=== PATIENT | female | born 1950 | race Caucasian/White ===

== ENCOUNTER 2018-04-26 00:42 | Outpatient (CLI) | payer MEDICARE, BC, SELFPAY ==
--- NOTE | 2018-04-26 10:50 | DI.MAMMO_ITS ---
SYMPTOM/DIAGNOSIS: SCREENING, [facility] Z00.00 MAMMOGRAMS: Mammograms were interpreted according to the usual protocol including computer analysis with CAD system, tomosynthesis and C view imaging. Comparison with prior examinations. Breast density B. No masses or microcalcifications are seen. There is nothing to suggest malignancy. IMPRESSION: Negative mammogram. Routine screening is recommended. Category 1 , B. MQSA ASSESSMENT OF FINDINGS: Negative. Category 1. Patient will receive a letter notifying them of these results. BI-RADS category B. There are scattered areas of fibroglandular density.
== END 2018-04-26 01:02 ==
PROVIDERS: PCP Family Medicine; Visit Provider Family Medicine
DX: Z12.31 Encounter for screening mammogram for malignant neoplasm of breast (principal)
CPT/HCPCS: 77063; 77067

== ENCOUNTER 2018-04-29 12:18 | Outpatient (REF) | payer MEDICARE, BC, SELFPAY ==
[2018-04-29 13:36] LABS: ALT 60 U/L (12-78); AST 28 U/L (15-37); Albumin 4.1 g/dL (3.4-5.0); Alkaline Phosphatase 96 U/L (46-116); BUN 20 mg/dL (7-18); Bilirubin, Total 0.7 mg/dL (0.2-1.0); CREATININE 0.86 mg/dL (0.55-1.02); Calcium 8.8 mg/dL (8.5-10.1); Chloride 103 mmol/L (98-107); Cholesterol 199 mg/dL (50-200); Glucose 117 mg/dL (70-100); HDL Cholesterol 36 mg/dL (40-60); LDL CHOLESTEROL 137 mg/dL (<100); Sodium 139 mmol/L (136-145); Total Protein 7.7 g/dL (6.4-8.2); Triglyceride 196 mg/dL (30-150)
== END 2018-04-29 12:38 ==
LOC: NCHCN 12:18
PROVIDERS: PCP Family Medicine; Visit Provider Family Medicine
DX: I10 Essential (primary) hypertension (principal); E07.89 Other specified disorders of thyroid
CPT/HCPCS: 80053; 80061; 83721

== ENCOUNTER 2019-05-19 08:21 | Outpatient (REF) | payer MEDICARE, BC, SELFPAY ==
[2019-05-19 14:56] LABS: HCT 41.1 % (36.0-46.0); HGB 13.6 g/dL (12.0-15.5); Mean Corp. HGB Concentration 33.1 g/dL (32.0-36.0); Mean Corpuscular Hemoglobin 30.7 pg (27.0-33.0); Mean Corpuscular Volume 92.8 fL (80-95); Mean Platelet Volume 12.1 fL (8.0-11.0); Platelet Count 193 x1000/uL (130-400); RBC 4.43 m/cumm (4.00-5.20); RBC Distribution Width 14.4 % (11.7-14.6)
[2019-05-19 15:39] LABS: ALT 52 U/L (14-59); AST 25 U/L (15-37); Alkaline Phosphatase 91 U/L (46-116); Anion Gap 9.6 mmol/L (3-11); BUN 16 mg/dL (7-18); Bilirubin, Total 0.8 mg/dL (0.2-1.0); CO2 28.4 mmol/L (21.0-32.0); CREATININE 0.96 mg/dL (0.55-1.02); Calcium 8.9 mg/dL (8.5-10.1); Calculated LDL 154 mg/dL; Chloride 101 mmol/L (98-107); Cholesterol 220 mg/dL (50-200); Glucose 122 mg/dL (70-100); HDL Cholesterol 38 mg/dL (40-60); Hemoglobin A1C 5.4 % (4.5-6.2); Potassium 3.6 mmol/L (3.5-5.1); Sodium 139 mmol/L (136-145); Total Protein 7.8 g/dL (6.4-8.2); Triglyceride 141 mg/dL (30-150)
== END 2019-05-19 08:41 ==
LOC: NCHCN 08:21
PROVIDERS: PCP Family Medicine; Visit Provider Family Medicine
DX: I10 Essential (primary) hypertension (principal); R73.09 Other abnormal glucose; E66.3 Overweight
CPT/HCPCS: 80053; 80061; 85027; 83036

== ENCOUNTER 2019-07-17 01:03 | Outpatient (CLI) | payer MEDICARE, BC, SELFPAY ==
--- NOTE | 2019-07-17 08:22 | DI.MAMMO_ITS ---
EXAM: MG MAMMO SCREENING CLINICAL HISTORY: SCREENING, Z12.39. TECHNIQUE: Full field digital CC and MLO mammographic images were obtained with 3D tomosynthesis and utilizing computer aided detection (CAD). COMPARISON: [id number]. FINDINGS: Breast density: B Masses/Architectural Distortion: None seen. Microcalcifications: No suspicious pleomorphic-type calcifications are seen. Skin Thickening/Nipple Retraction: None. Axilla: Unremarkable. IMPRESSION: 1. BI-RADS category 1, negative. No significant interval change with no specific features of maligna ncy noted. 2. Unless there is more urgent need, screening mammography is recommended, as per [employer] [employer] guidelines. BI-RADS Cat 1 - Negative Breast Density - Category B - Scattered areas of fibroglandular density A negative radiographic report should not delay biopsy if a dominant or clinically suspicious mass is present. Up to ten percent of cancers are not identified on mammography. A negative report may reinforce clinical impression. Adenosis and dense breasts may obscure an underlying neoplasm. False positive reports average 6 to 10%. Patient will receive a letter notifying them of these results.
--- NOTE | 2019-07-17 08:40 | DI.DEXA_ITS ---
EXAM: XR DEXA BONE DENSITY W/WO JAILENE INDICATION: MENOPAUSE, Z78.0. COMPARISON: 2007. TECHNIQUE: Lateral JAILENE image of the spine and bone mineral density measurements of the lumbar spine and left hip were performed. The wrist bone density could not be performed due to bilateral wrist fractures. FINDINGS: The JAILENE image shows no evidence of compression fractures. The bone mineral density measurements of the lumbar spine correspond to a total T-score of -2.5, in the osteoporotic range. This is not signi ficantly changed from 2008. The bone mineral density measurements of the left hip correspond to a total T-score of -1.3 and a fem oral neck T-score of -2.1, in the osteopenic range. This corresponds to a decrease in bone density o f 5.9 percent when compared with 2008. IMPRESSION: Osteopenia of the left hip. Osteoporosis of the lumbar spine.
== END 2019-07-17 01:23 ==
PROVIDERS: PCP Family Medicine; Visit Provider Family Medicine
DX: M81.0 Age-related osteoporosis without current pathological fracture (principal); M85.88 Other specified disorders of bone density and structure, other site; Z78.0 Asymptomatic menopausal state; Z87.81 Personal history of (healed) traumatic fracture; Z12.31 Encounter for screening mammogram for malignant neoplasm of breast
CPT/HCPCS: 77063; 77067; 77080

== ENCOUNTER 2020-05-14 08:36 | Outpatient (REF) | payer MEDICARE, BC, SELFPAY ==
[2020-05-14 21:17] LABS: HCT 40.3 % (36.0-46.0); HGB 12.7 g/dL (11.2-15.7); MCH 29.8 pg (27.0-33.0); MCHC 31.5 % (32.0-36.0); MCV 94.6 fL (80-95); MPV 12.2 fL (8.0-11.0); Platelet Count 179 10^3/uL (130-400); RBC 4.26 10^6/uL (3.93-5.22); RDW 14.3 % (11.7-14.6); RDW-SD 49.7 fL; WBC 4.55 10^3/uL (4.4-10.8)
[2020-05-14 22:37] LABS: ALT 29 U/L (14-59); AST 16 U/L (15-37); Albumin 3.8 g/dL (3.4-5.0); Alkaline Phosphatase 82 U/L (46-116); Anion Gap 7.9 mmol/L (3-11); BUN 20 mg/dL (7-18); Bilirubin, Total 0.6 mg/dL (0.2-1.0); CO2 30.1 mmol/L (21.0-32.0); CREATININE 0.74 mg/dL (0.55-1.02); Calcium 8.8 mg/dL (8.5-10.1); Calculated LDL 128 mg/dL (<100); Chloride 101 mmol/L (98-107); Cholesterol 192 mg/dL (<200); Glucose 115 mg/dL (74-106); HDL Cholesterol 40 mg/dL (40-60); Potassium 3.9 mmol/L (3.5-5.1); Sodium 139 mmol/L (136-145); TSH (W/Ref FT4) 1.05 uIU/mL (0.36-3.74); Total Protein 7.3 g/dL (6.4-8.2); Triglyceride 124 mg/dL (<150)
[2020-05-16 04:25] LABS: Vitamin D 25 Total 81.6 ng/ml (30-100)
== END 2020-05-14 08:56 ==
LOC: NCHCN 08:36
PROVIDERS: PCP Family Medicine; Visit Provider Family Medicine
DX: I10 Essential (primary) hypertension (principal); E55.9 Vitamin D deficiency, unspecified; E66.3 Overweight
CPT/HCPCS: 80053; 80061; 82306; 85027; 84443

== ENCOUNTER 2021-01-24 00:49 | Outpatient (CLI) | payer MEDICARE, BC, SELFPAY ==
--- NOTE | 2021-01-24 11:00 | NS.NUTBLAN_ITS ---
Rebeca was referred for Medical Nutrition Therapy for weight management. 5'3 172 lbs BMI: 30. Rebeca reports walking 3-4 miles daily and tracking her food intake on lorna on phone. She reports following a 1500 kcal meal plan with 150- 200 g CHO, 50-60 g protein, 40-50 g fat. She has been doing this for the last 3 years without any significant weight loss. Has a hx of thyroid nodules, no treatment needed. PMH: HTN. Family of DM2. Rebeca's meal plan indicates high intakes of simple carbohydrates and no meal at dinner. Suspect lack of weight loss due in part to excessive carb intake and insulin resistance. Would also recommend checking thyroid function and eating 3 meals and 2 snacks daily with emphasis on complex carbs, lean protein and healhty fats. . Provided instruction on how to follow 0258-3837 kcal meal plan with 80-100g carbohydrate, 60-70 g protein and 40-55 g fat. Encouraged continued walking of 1 hour daily. Goal wt: 150-160 lbs, with 1 lbs weight loss per week. Follow up appt. scheduled for 02/27/21 at 11 am.
== END 2021-01-24 00:50 | disposition home or self-care (01) ==
LOC: DS 00:49
PROVIDERS: PCP Family Medicine; Visit Provider Dietitian, Registered
DX: R63.5 Abnormal weight gain (principal); E66.3 Overweight; Z68.30 Body mass index [BMI] 30.0-30.9, adult; Z71.3 Dietary counseling and surveillance
CPT/HCPCS: 97802

== ENCOUNTER 2021-03-21 01:19 | Outpatient (CLI) | payer MEDICARE, BC, SELFPAY ==
--- NOTE | 2021-03-21 11:00 | NS.NUTBLAN_ITS ---
Rebeca returns for Medical Nutrition Therapy for weight management. 5'3 168 lbs, down 4 lbs in last 8 weeks, BMI 29.8. Rebeca reports reducing her carbohydrate intake as recommended and has been following a 3218-3774 calorie meal plan with 80-100g carbohydrate, 60-70 g protein, 45-55 g fat. She continues to log her meals on phone lorna. Session today focused on meal variety and how to stay on track with logging and exercising. Rebeca is very pleased with how she feels on this meal plan and reports feeling full and satisfied. Reviewed and adjusted dinner meal to consist of more protein (goal 25 g protein at dinner) to help with satiety in evening. Goal weight: 150-155 lbs. Follow up scheduled for 05/29/21 at 11 am.
== END 2021-03-21 01:20 | disposition home or self-care (01) ==
LOC: DS 01:19
PROVIDERS: PCP Family Medicine; Visit Provider Dietitian, Registered
DX: E66.3 Overweight (principal); Z68.29 Body mass index [BMI] 29.0-29.9, adult; Z71.3 Dietary counseling and surveillance
CPT/HCPCS: 97803

== ENCOUNTER 2021-05-14 09:20 | Outpatient (REF) | payer MEDICARE, BC, SELFPAY ==
[2021-05-14 14:18] LABS: HCT 38.2 % (36.0-46.0); HGB 12.5 g/dL (11.2-15.7); MCH 30.5 pg (27.0-33.0); MCHC 32.7 % (32.0-36.0); MCV 93.2 fL (80-95); MPV 12.3 fL (8.0-11.0); Platelet Count 143 10^3/uL (130-400); RDW 13.5 % (11.7-14.6); RDW-SD 46.1 fL
[2021-05-14 14:29] LABS: ALT 30 U/L (14-59); AST 16 U/L (15-37); Albumin 3.9 g/dL (3.4-5.0); Alkaline Phosphatase 109 U/L (46-116); Anion Gap 9.1 mmol/L (3-11); BUN 20 mg/dL (7-18); Bilirubin, Total 0.8 mg/dL (0.2-1.0); CO2 28.9 mmol/L (21.0-32.0); CREATININE 0.8 mg/dL (0.55-1.02); Calcium 9.1 mg/dL (8.5-10.1); Calculated LDL 122 mg/dL (<100); Chloride 104 mmol/L (98-107); Cholesterol 184 mg/dL (<200); Glucose 98 mg/dL (74-106); HDL Cholesterol 45 mg/dL (40-60); Sodium 142 mmol/L (136-145); TSH (W/Ref FT4) 1.06 uIU/mL (0.36-3.74); Total Protein 7.4 g/dL (6.4-8.2); Triglyceride 85 mg/dL (<150)
[2021-05-15 04:56] LABS: Vitamin D 25 Total 91.1 ng/mL (30-100)
== END 2021-05-14 09:21 | disposition home or self-care (01) ==
LOC: NCHCN 09:20
PROVIDERS: PCP Family Medicine; Visit Provider Family Medicine
DX: E66.3 Overweight (principal); E04.1 Nontoxic single thyroid nodule; E55.9 Vitamin D deficiency, unspecified; I10 Essential (primary) hypertension
CPT/HCPCS: 80053; 80061; 82306; 85027; 84443

== ENCOUNTER 2021-07-01 00:41 | Outpatient (CLI) | payer MEDICARE, BC, SELFPAY ==
--- NOTE | 2021-07-01 | DI.MAMMO_ITS ---
Exam(s) MAMMO SCREENING EXAM: MAMMO SCREENING CLINICAL HISTORY: SCREENING, PREVENTIVE [facility]ALTH, Z00.00 TECHNIQUE: Bilateral full field digital CC and MLO mammographic images were obtained with 3D tomosyn thesis and utilizing computer aided detection (CAD). COMPARISON: Available for comparison. FINDINGS: Masses/Architectural Distortion: None seen. Stable nodules in the left breast may reflect intraparenc hymal lymph nodes. Microcalcifications: No suspicious pleomorphic-type are seen. Skin Thickening/Nipple Retraction: None. IMPRESSION: 1. No significant interval change with no specific features of malignancy noted. 2. Unless there is more urgent need, screening mammography is recommended, as per [employer] guidelines. BI-RADS Category 1 - Negative Breast Density - Category B - Scattered areas of fibroglandular density Breast density category C or D implies that the patient has dense breast tissue. Dense breast tissue is very common and is not abnormal but dense breast tissue can make it harder to find cancer on a ma mmogram. Also, dense breast tissue may increase their breast cancer risk. This information about the result of the mammogram report was provided to the patient to raise their awareness. Use this report when you speak with the patient about their risks for breast cancer, which includes their family hist ory. At that time, you may recommend for more screening tests (Ultrasound or MRI) as they might be us eful based on their risk. A negative radiographic report should not delay biopsy if a dominant or clinically suspicious mass is present. Up to ten percent of cancers are not identified on mammography. A negative report may reinforce clinical impression. Adenosis and dense breasts may obscure an underlying neoplasm. False positive reports average 6 to 10%. Patient will receive a letter notifying them of these results.
--- OUTSIDE RECORDS SUMMARY | 2021-07-01 00:43 | XMS_ITS ---
:1950 Author Care Team Providers Name Role Phone DR. JANIE CHRISTINA Primary Care Provider [phone] [facility] Primary Care Provider [phone] [facility] Primary Care Provider [phone] Allergies Code Code System Name Reaction Severity Status Onset NKDA ? Medications Name Status Start Date Stop Date ? ? Calcium 500 Completed ? 01/24/2019 1 tab BID doxepin 10 mg capsule Completed 08/05/2017 08/05/2017 1 (one) Capsule: at bedtime, as needed Fish Oil Completed ? 01/24/2019 1000mg cap daily fosinopril 20 mg tablet Active ? Not avai lable Take 1 tablet every day by oral route. hydrochlorothiazide 25 mg tablet Active ? Not available Take 1 tablet every day by oral route. multivitamin Active ? Not available 1 tab daily Silenor 6 mg tablet Completed ? 01/24/2019 Take 1 tablet every day by oral route at bedtime. Vitamin D3 25 mcg (1,000 unit) capsule Completed ? 01/24/2019 Take 1 capsule every day by oral route. Problems Name Status Onset Date Source ? Thyroid Nodule Active 01/19/2019 ? Osteopenia Active 01/19/2019 ? Snoring Active 01/19/2019 ? Overweight Active ? History Insomnia Active ? History Hypersomnia Active ? History Obstructive Sleep Apnea Syndrome Active ? History Hypertensive Disorder Active ? History Irregular Sleep-wake Pattern Active ? His tory Procedures None recorded. Results Lab Results None recorded. Past Encounters 04/17/2020 Obstructive Sleep Apnea Syndrome Chaya Jones [employer]: [address] [place] [id number], Ph. Social History Tobacco Smoking Status Never Smoker Vaccine List None recorded. Plan of Care Reminders Provider Appointments None ? ? recorded. Lab None ? ? recorded. Referral None ? ? recorded. Procedures None ? ? recorded. Surgeries None ? ? recorded. Imaging None ? ? recorded. Vitals 04/17/2020 10:00AM Office 30 Height Weight BMI Blood Pressure 160.02 cm 75.48 kg 29.5 kg/m2 140/62 mm[Hg] 01/24/2019 08:45AM Office 30 Height Weight BMI Blood Pressure 160.02 cm 80.06 kg 31.3 kg/m2 120/70 mm[Hg] 08/05/2017 Height Weight Blood Pressure 160.02 cm 80.4 kg 126/76 mm[Hg] 05/25/2017 Weight Blood Pressure 77.56 kg 140/80 mm[Hg] 07/07/2016 Height Weight Blood Pressure 160.02 cm 77.74 kg 126/82 mm[Hg] 07/10/2013 Height Weight Blood Pressure 160.02 cm 73.03 kg 130/82 mm[Hg] 03/22/2013 Height Weight Blood Pressure 160.02 cm 73.03 kg 118/76 mm[Hg] 11/09/2012 Height Weight Blood Pressure 160.02 cm 70.87 kg 122/74 mm[Hg] 08/29/2012 Height Weight Blood Pressure 160.02 cm 73.94 kg 148/82 mm[Hg]
== END 2021-07-01 01:01 ==
PROVIDERS: PCP Family Medicine; Visit Provider Family Medicine
DX: Z12.31 Encounter for screening mammogram for malignant neoplasm of breast (principal)
CPT/HCPCS: 77063; 77067

== ENCOUNTER 2022-06-02 10:03 | Outpatient (REF) | payer MEDICARE, SELFPAY ==
[2022-06-02 15:57] LABS: HCT 40.1 % (36.0-46.0); HGB 13.1 g/dL (11.2-15.7); MCH 30.4 pg (27.0-33.0); MCHC 32.7 % (32.0-36.0); MCV 93 fL (80-95); Platelet Count 145 10^3/uL (130-400); RBC 4.31 10^6/uL (3.93-5.22); RDW 13.2 % (11.7-14.6); RDW-SD 45.1 fL; WBC 4.35 10^3/uL (4.4-10.8)
[2022-06-02 16:16] LABS: ALT 28 U/L (14-59); AST 20 U/L (15-37); Albumin 4.1 g/dL (3.4-5.0); Alkaline Phosphatase 96 U/L (46-116); Anion Gap 6.3 mmol/L (3-11); BUN 21 mg/dL (7-18); Bilirubin, Total 0.6 mg/dL (0.2-1.0); CO2 28.7 mmol/L (21.0-32.0); CREATININE 0.8 mg/dL (0.55-1.02); Calcium 9.2 mg/dL (8.5-10.1); Chloride 106 mmol/L (98-107); Estimated GFR 78.72 (mL/min/1.73m2); Glucose 107 mg/dL (74-106); Potassium 4.2 mmol/L (3.5-5.1); Sodium 141 mmol/L (136-145); Total Protein 7.6 g/dL (6.4-8.2)
[2022-06-02 16:33] LABS: Calculated LDL 135 mg/dL (<100); Cholesterol 202 mg/dL (<200); HDL Cholesterol 48 mg/dL (40-60); Triglyceride 97 mg/dL (<150)
[2022-06-02 17:18] LABS: Hemoglobin A1C 5.1 % (<5.7)
== END 2022-06-02 10:04 | disposition home or self-care (01) ==
LOC: NCHCN 10:03
PROVIDERS: PCP Family Medicine; Visit Provider Family Medicine
DX: E66.3 Overweight (principal); R73.9 Hyperglycemia, unspecified; E55.9 Vitamin D deficiency, unspecified; I10 Essential (primary) hypertension; E04.1 Nontoxic single thyroid nodule
CPT/HCPCS: 80053; 80061; 85027; 83036

== ENCOUNTER → 2022-06-16 11:30 | Outpatient (BNVA) | payer MEDICARE, SELFPAY | PROVIDERS: PCP Family Medicine; Referring Provider Family Medicine; Visit Provider Surgery | DX: Z12.11 Encounter for screening for malignant neoplasm of colon (principal); Z86.010 Personal history of colon polyps ==

== ENCOUNTER 2022-06-29 09:28 | Day surgery (SDC) | payer MEDICARE, SELFPAY ==
--- NOTE | 2022-06-29 06:38 | COLE_ITS ---
Date of service: 06/29/22 Time of Service: : Colonoscopy Report Date of procedure: 06/29/22 Pre-op diagnosis general: Colon cancer Screening Post-op diagnosis procedure note: same Procedure: Colonoscopy Surgeon: Latricia Pyle Anesthesia Type: General:No Airway Estimated blood loss (mL): 0 Pathology: none sent Complications: None Disposition: same day Indications: The patient? is a pleasant ? 71-year-old female who is here to discuss another screening colonoscopy. ? Her last colonoscopy was in 2010 and she was noted to have 2 hyperplastic polyps.? She denies any changes in bowel habits, melena, hematochezia, unintentional weight loss or family history of colon cancer.? The procedure and risks were discussed.? The prep was reviewed in detail.? Risks, benefits and complications have been reviewed. Complications include but are not limited to bleeding, pain, perforation, missed small lesion/polyp, sore throat, aspiration and adverse reaction to the medications. Questions were entertained and answered to their satisfaction and they wished to proceed. No guarantees were given or implied. Prep: Miralax/Dulcolax Procedure Start Time: Procedure End Time: Retraction Time: 8 minutes Findings: Normal Procedure Description: After informed consent was obtained the patient was taken to the procedure room and placed in a left decubitous position. Monitors were applied and a time out was done. The patients name, date of , procedure, allergies to medications and metal in their body was reviewed. The patient was then sedated. Once sedated and comfortable a rectal exam was done. External exam was normal. Internal exam revealed a normal sphincter tone and no palpable masses. The scope was then introduced and retro-flexed. No internal hemorrhoids, polyps or masses were identified on retro-flexion. The scope was then advanced to the cecum without difficulty. The ileocecal vlave and appendiceal orifice were identified. The prep was good. The scope was then slowly retracted over 8 james rohit back into the rectum. There were no polyps. There was no diverticulosis noted. The scope was removed and the patient was woken up and taken back to Same day surgery in stable condition. The patient tolerated the procedure well and there were no immediate complications.
--- NOTE | 2022-06-29 06:39 | W.PM.DSUDISC ---
Date of service: 06/29/22 Time of Service: 11:19 Discharge Plan Disposition Patient Disposition: HOME Condition: Good Discharge Details Reason For Visit: Colon cancer Screening Attending Provider: Latricia Pyle Primary Care Provider: Jaki Vidal Home Meds and New Rx's Prescriptions: Continued fosinopril 10 mg tablet 10 mg PO DAILY Discontinued bisacodyl [Dulcolax (bisacodyl)] 5 mg tablet,delayed release (DR/EC) 5 mg PO ONCE Qty: 4 0RF Rx Instructions: Take according to provider's instructions for colonoscopy prep. polyethylene glycol 3350 17 gram/dose powder 17 g PO ONCE Qty: 238 0RF Rx Instructions: To be taken as directed by prescriber's office for colonoscopy prep. Discharge Instructions Additional Instructions: Findings: Normal colonoscopy Follow up: 10 years (depending on your health) Please call if you develop: fevers >101.5 Nausea or Vomiting Abdominal pain that is not transient Rectal bleeding that is more then a tbsp A hard abdomen and inability to pass gas DAY SURGERY UNIT POST ENDOSCOPY INSTRUCTIONS Instructions for everyone who is given Anesthesia: For your safety, please do the following for the next 24 Hours: a. Do not drive or operate dangerous equipment b. Do not drink alcohol beverages or use any recreational drugs for the first 24 hours or while taking pain medications. The medications in your body may have a reaction that can be dangerous. c. Do not make any important decisions or sign any important papers 1. Generally there are no restrictions on your activity after a day or so has gone by, but you may feel a bit fatigued for a few days. 2. After you arrive home you may have a light meal and return to a normal diet as you can tolerate it without feeling sick to your stomach. 3. After surgery, you may feel pain or discomfort. This should be only transient, but if it persists please contact your doctor. 4. If there are any questions regarding the findings of your procedure, please feel free to contact your doctor. 6. If you are unable to contact your doctor with a problem, contact the hospital at [phone]. 7. Continue all your regular medications unless directed otherwise. I understand the above instructions and have no questions. Signature of Patient or Responsible Adult Escort Date/Time Name of Responsible Adult Escort Signature of Nurse Date/Time Activity:: Activity as Tolerated Equipment/Supplies:: No Equipment Needed Diet:: As Tolerated
[2022-06-29 10:26] VITALS: BP 177/83; PULSE 71; RESP 16; TEMP 36.3; O2SAT 100
[2022-06-29] MEDS: Lactated Ringers 1,000 ML 80 ML IV (10:42)
--- NOTE | 2022-06-29 11:06 | ANES.PREOP_ITS ---
General Info Date of Service Date Performed: 06/29/22 Height: 5 ft 4 in Weight: 77.4 kg Body Mass Index (BMI): 29.2 Surgical Procedure: Operation Date: 06/29/22 11:20 Proposed Procedure Side Surgeon p Colonoscopy Latricia Pyle MD Meds Allergies and Home Medications Allergies Allergy/AdvReac Type Severity Reaction Status Date / Time No Known Allergies Allergy Verified 06/29/22 10:24 Home Medication Medication Instructions Recorded fosinopril 10 mg tablet 10 mg PO DAILY 09/19/21 bisacodyl 5 mg tablet,delayed 5 mg PO ONCE #4 tabs 06/16/22 release (Dulcolax (bisacodyl)) polyethylene glycol 3350 17 17 g PO ONCE #238 grams 06/16/22 gram/dose oral powder Current Visit Medications: Current Medications Generic Name Dose Route Start Last Admin Trade Name Freq PRN Reason Stop Dose Admin Hyoscyamine Sulfate 0.125 mg 06/29/22 06:40 Hyoscyamine 0.125 Mg Sl/Oral/Chew SL DIRECTED PRN Ringer's Solution 1,000 mls @ 80 mls/hr 06/29/22 06:00 06/29/22 10:42 IV 07/26/22 23:59 80 mls/hr INFUSION RAMON Administration IV Miscellaneous Supplies 1 each 06/29/22 06:00 Iv Access IV 07/26/22 23:59 DIRECTED RAMON Ondansetron HCl 4 mg 06/29/22 06:40 Ondansetron 4 Mg/2 Ml Vial IVP Q4H PRN PRN Nausea / Vomiting Sodium Chloride 0 ml 06/29/22 06:00 Normal Saline Flush 10 Ml Syr IV 07/26/22 23:59 PRN PRN Sodium Chloride 0 ml 06/29/22 06:00 Normal Saline 10 Ml Vial IJ 07/26/22 23:59 DIRECTED PRN Sterile Water 0 ml 06/29/22 06:00 Water,Injection,Sterile 10 Ml Vial IJ 07/26/22 23:59 DIRECTED PRN PFSH Active Problems Active Problems: Problem Status Onset Code Screening for colon cancer Z12.11 DINO (obstructive sleep apnea) G47.33 Medical History Medical History Hyperplastic colon polyp Hypertension Osteoporosis Prediabetes Skin lesion Thyroid nodule Varicose veins of right lower extremity Vitamin D deficiency Surgical History Surgical History History of colonoscopy (~05/2011) Hx of section Tobacco Smoking/Tobacco Use Status: Never Alcohol Alcohol Intake: current Alcohol intake frequency: holidays/special occasions only Alcohol type: wine Substance Use Substance use: Never Substance use type: does not use Vital Signs and Lab Results Vital Signs Most Recent Vital Signs in EMR: Most Recent Vital Signs Temp Pulse Resp BP Pulse Ox 36.3 C L 71 16 177/83 H 100 06/29/22 10:26 06/29/22 10:26 06/29/22 10:26 06/29/22 10:26 06/29/22 10:26 Lab Results Blood Type / Crossmatch: No Data to Display Complete Blood Count: White Blood Count 4.35 10^3/uL (4.4-10.8) L 06/02/22 08:00 Red Blood Count 4.31 10^6/uL (3.93-5.22) 06/02/22 08:00 Hemoglobin 13.1 g/dL (11.2-15.7) 06/02/22 08:00 Hematocrit 40.1 % (36.0-46.0) 06/02/22 08:00 Platelet Count 145 10^3/uL (130-400) 06/02/22 08:00 Complete Metabolic Panel: Sodium 141 mmol/L (136-145) 06/02/22 08:00 Potassium 4.2 mmol/L (3.5-5.1) 06/02/22 08:00 Chloride 106 mmol/L (98-107) 06/02/22 08:00 Carbon Dioxide 28.7 mmol/L (21.0-32.0) 06/02/22 08:00 BUN 21 mg/dL (7-18) H 06/02/22 08:00 Creatinine 0.8 mg/dL (0.55-1.02) 06/02/22 08:00 Est GFR (CKD-EPI 2020) 78.72 (mL/min/1.73m2) 06/02/22 08:00 Calcium 9.2 mg/dL (8.5-10.1) 06/02/22 08:00 Albumin 4.1 g/dL (3.4-5.0) 06/02/22 08:00 Glucose 107 mg/dL (74-106) H 06/02/22 08:00 Hemoglobin A1c 5.1 % (<5.7) 06/02/22 08:00 Liver Function Panel: Alanine Aminotransferase (ALT/SGPT) 28 U/L (14-59) 06/02/22 08: 00 Aspartate Amino Transf (AST/SGOT) 20 U/L (15-37) 06/02/22 08:00 Coagulation Panel: No Data to Display Cardiac Panel: No Data to Display Arterial Blood Gas: No Data to Display Venous Blood Gas: No Data to Display Pancreas Panel: No Data to Display Thyroid Panel: No Data to Display Infectious Disease: No Data to Display Blood Cultures: No Data to Display Toxicology Panel: No Data to Display Anesthesia Assessment and Plan Anesthesia History Personal History: No History of Anesthesia Complications Family History: No Family History of Anesthesia Complications Exercise Tolerance Exercise Tolerance: Metabolic Equivalents>4 Pertinent Negatives Pertinent Negatives: No Symptoms of GERD, No Major Cardiovascular Symptoms or Complaints, No Major Pulmonary Symptoms or Complaints (DINO uses CPAP every night ) and No History of CVA/TIA Cardiac & Pulmonary Exam Cardiac Exam: Normal S1/S2 Heart Sounds Pulmonary Exam: Clear Bilateral Breath Sounds Implantable Cardiac Device Does patient have a Pacemaker or an ICD?: No Airway Exam Known Difficult Airway: No Mallampati Class: 3 Mouth Opening: Normal (> 3cm) Thyromental Distance: Greater than 3 cm Neck Range of Motion: Full ROM Neck Circumference: Normal Teeth Condition: Removable Dentures/Plates Upper (Partial ) ASA Classification ASA Score: ASA 2 Emergency Case?: No NPO Status NPO Status: NPO Clears >2 hours, Solids >8 hours Anesthesia Plan Resuscitation Status: Full Code Anesthesia Technique: General Anesthesia Airway Planned: Natural Airway Monitors Used: Standard Monitors
[2022-06-29 11:09] VITALS: BMI 29.2
[2022-06-29 11:45] VITALS: BP 136/73; PULSE 64; RESP 16; TEMP 36.2; O2SAT 97
--- NOTE | 2022-06-29 11:47 | W.ANESPOSTOP ---
Postoperative Evaluation Date, Time and Location Date Performed: 06/29/22 Time Performed: 11:46 Patient Location: Day Surgery Unit Vital Signs Most Recent Imported Vital Signs: Most Recent Vital Signs Temp Pulse Resp BP Pulse Ox 36.3 C L 71 16 177/83 H 100 06/29/22 10:26 06/29/22 10:26 06/29/22 10:26 06/29/22 10:26 06/29/22 10:26 Pain Score Most Recent Pain Score: Most Recent Pain Score Pain Level 0 06/29/22 10:26 Assessment Mental Status: Awake (Alert & Oriented to Patient Baseline) Airway and Respiratory Function: Patent airway with normal (patient baseline) respiratory exam Cardiovascular Function: Hemodynamically Stable Hydration Status: Adequately Hydrated Nausea & Vomiting: No Nausea or Vomiting Pain: Pt. Denies Any Pain Peripheral Nerve Block: Patient did not receive a nerve block
[2022-06-29 12:18] VITALS: BP 167/94; PULSE 69; RESP 16; TEMP 36.3; O2SAT 98
== END 2022-06-29 12:30 | disposition home or self-care (01) ==
PROVIDERS: PCP Family Medicine; Visit Provider Surgery
PROC: 0DJD8ZZ Inspection of Lower Intestinal Tract, Via Natural or Artificial Opening Endoscopic (ICD-10-PCS; CPT 45378; principal; 2022-06-29 11:15)
DX: Z12.11 Encounter for screening for malignant neoplasm of colon (principal); R73.03 Prediabetes; G47.33 Obstructive sleep apnea (adult) (pediatric)
CPT/HCPCS: G0121

== ENCOUNTER 2023-06-08 11:09 | Outpatient (REF) | payer MEDICARE, SELFPAY ==
[2023-06-08 14:47] LABS: HCT 36.9 % (36.0-46.0); HGB 12.3 g/dL (11.2-15.7); MCH 30.8 pg (27.0-33.0); MCHC 33.3 % (32.0-36.0); MCV 92 fL (80-95); MPV 11.6 fL (8.0-11.0); Platelet Count 203 10^3/uL (130-400); RDW 14.3 % (11.7-14.6); RDW-SD 48.3 fL
[2023-06-08 15:25] LABS: ALT 31 U/L (14-59); AST 20 U/L (15-37); Alkaline Phosphatase 86 U/L (46-116); Anion Gap 10.8 mmol/L (3-11); BUN 16 mg/dL (7-18); Bilirubin, Total 0.9 mg/dL (0.2-1.0); CO2 27.2 mmol/L (21.0-32.0); CREATININE 0.9 mg/dL (0.55-1.02); Calcium 9.5 mg/dL (8.5-10.1); Calculated LDL 145 mg/dL (<100); Chloride 101 mmol/L (98-107); Cholesterol 212 mg/dL (<200); Estimated GFR 67.92 (mL/min/1.73m2); Glucose 108 mg/dL (74-106); HDL Cholesterol 40 mg/dL (40-60); Potassium 3.9 mmol/L (3.5-5.1); Sodium 139 mmol/L (136-145); Total Protein 7.5 g/dL (6.4-8.2); Triglyceride 139 mg/dL (<150)
[2023-06-08 15:45] LABS: Vitamin D 25 Total 67.1 ng/mL (30-100)
== END 2023-06-08 11:10 | disposition home or self-care (01) ==
LOC: NCHCN 11:09
PROVIDERS: PCP Family Medicine; Visit Provider Family Medicine
DX: I10 Essential (primary) hypertension (principal); E55.9 Vitamin D deficiency, unspecified; Z00.00 Encounter for general adult medical examination without abnormal findings; R73.03 Prediabetes; E66.3 Overweight
CPT/HCPCS: 80053; 80061; 82306; 85027

== ENCOUNTER → 2023-07-01 01:11 | Outpatient (CLI) | payer MEDICARE, SELFPAY ==
--- NOTE | 2023-07-01 | DI.DEXA_ITS ---
Exam(s) XR DEXA BONE DENSITY W/WO JAILENE EXAM: XR DEXA BONE DENSITY W/WO JAILENE CLINICAL HISTORY: Z78.0 Asymptomatic menopausal state TECHNIQUE: Routine DEXA evaluation of the lumbar spine, hip, or forearm. COMPARISON: CR XR DEXA BONE DENSITY W/WO JAILENE from 07/17/2019 FINDINGS: Performed on a Vitrina unit. Lateral image: No compression fracture evident. Lumbar Spine total T-score: -1.6. Prior reading in 2019 was -2.5. Improved Hip total T-score:-0.9. Prior reading in July 2019 was -1.3.. Improved Independent reading at the level of the femoral neck yields T-score of -1.7 Forearm total T-score: -2.5 IMPRESSION: Improvement in the readings of the lumbar spine and hip when compared to 2019. Bone mineral density measures in the osteopenia range for lumbar spine and hip. Fracture risk is mod erate. Mineral density measures in the osteoporosis range for the wrist-forearm implying higher risk at this level. Note: Any spine fracture indicates 5x risk for subsequent spine fracture and 2x risk for subsequent h ip fracture. World Health Organization criteria for BMD interpretation classify patients: Normal...... T- Score at or above -1.0 Osteopenic... T- Score between -1.0 and -2.5 Osteoporosis... T-Score at or below -2.5
== END ==
PROVIDERS: PCP Family Medicine; Visit Provider Family Medicine
DX: Z78.0 Asymptomatic menopausal state (principal); Z13.820 Encounter for screening for osteoporosis
CPT/HCPCS: 77080

== ENCOUNTER → 2023-07-07 01:37 | Outpatient (CLI) | payer MEDICARE, SELFPAY ==
--- NOTE | 2023-07-07 | DI.MAMMO_ITS ---
Exam(s) MAMMO SCREENING EXAM: MAMMO SCREENING CLINICAL HISTORY: SCREENING Z12.31. TECHNIQUE: Bilateral full field digital CC and MLO mammographic images were obtained with 3D tomosyn thesis and utilizing computer aided detection (CAD). COMPARISON: Prior mammograms dating back to 2013 were reviewed. FINDINGS: There has been no significant change in the appearance and distribution of the fibroglandular tissue. There are no CAD designations. There are no new spiculated masses nor malignant appearing microcalcification groups. Benign-appearing nodules in the lateral aspect of the left breast are unchanged from 2014. There is no significant architectural distortion nor skin thickening-retraction. IMPRESSION: No radiographic evidence of malignancy. Stable benign findings. BI-RADS Category 1 - Negative Breast Density - Category B - Scattered areas of fibroglandular density Breast density Category C or D implies that the patient has dense breast tissue. Dense breast tissue can make it harder to find cancer on a mammogram. Dense breast tissue is also associated with an incr eased risk of breast cancer. This information about the result of the mammogram report was provided to the patient to raise their awareness. Use this report when you speak with the patient about their risks for breast cancer, which includes their family history. At that time, you may recommend additional screening tests (Ultrasoun d or MRI) as these tests may add significant information. A negative radiographic report should not delay biopsy if a dominant or clinically suspicious mass is present. Up to ten percent of cancers are not identified on mammography. A negative report may reinforce clinical impression. Adenosis and dense breasts may obscure an underlying neoplasm. False positive reports average 6 to 10%. Patient will receive a letter notifying them of these results.
== END ==
PROVIDERS: PCP Family Medicine; Visit Provider Family Medicine
DX: Z12.31 Encounter for screening mammogram for malignant neoplasm of breast (principal)
CPT/HCPCS: 77063; 77067

== ENCOUNTER → 2024-01-10 01:49 | Outpatient (CLI) | payer MEDICARE, SELFPAY ==
--- NOTE | 2024-01-10 | DI.NM_ITS ---
APPROVED REPORT Exam: Exercise Treadmill Patient Location: Out-Patient Room/Bed: Stress Nurse: Rosemary James RN Ordering Provider:JANIE CHRISTINA, Contact Number: BMI: 28.83 Baseline Rhythm: Sinus Rhythm Indications: Unspecified angina, Medical History Medical History: HTN, prediabetes, DINO Cardiac Medications: Fosinopril, hydrochlorothiazide Allergies: NKA Cardiac Risk Factors: Family hx, HTN, prediabetes Previous Cardiac Procedures: None Pretest Chest Pain Characteristics: None Exercise History: Physically active Physical Disabilities: None Lung Sounds: Clear to auscultation Heart Sounds: Regular Stress Test Details Test: Exercise stress testing was performed using a Awais protocol. Nuclear Acquisition: Rest Tc-99m/Stress Tc-99m 1 day Rest Isotope: Tc-99m Sestamibi. Dose: 10.0 Date: 01/10/2024 Injection Time: 0815 Stress Isotope: Tc-99m Sestamibi. Dose: 31.0 Date: 01/10/2024 Injection Time: 1005 HR Resting HR Supine: 66 bpm Max Heart Rate (APMHR): 147.572579 bpm Resting HR Standin bpm Target HR (85% APMHR): 124.757587 bpm Max HR Achieved: 128 bpm % of APMHR: 87.07 Recovery HR: 76 bpm HR response to stress: Normal HR response to stress BP Resting BP Supine: 152/86 mmHg Resting BP Standin/82 mmHg Max BP: 202/68 mmHg Recovery BP: 166/86 mmHg BP response to stress: Normal blood pressure response to stress. ECG Resting ECG: Sinus Rhythm Ectopy: None Stress ECG: Sinus Tachycardia ST Change: No significant ST segment changes noted Arrhythmia: None Recovery ECG: Sinus Rhythm Recovery ST Change: No significant ST segment changes noted Recovery Arrhythmia: None Clinical Reason for Termination: Target HR Achieved Stress Symptoms: None Exercise duration: 03 min59 sec Highest Stage Reached: Stage 2: 2.5 mph at 12% grade. Exercise capacity: 5.81 METs Angina Score: None Rate Pressure Product: [id number] Stress ECG Conclusion 1. Resting electrocardiogram showed late transition 2. Patient exercised on the Awais protocol and completed a workload of 5.81 METS 3. Normal heart rate and blood pressure response to exercise. The patient achieved 87% of predicted heart rate for age 4. There was no electrocardiographic evidence of myocardial ischemia 5. There were no significant dysrhythmias 6. See MPI report Stress Test Summary STAGE Time (mins) Speed (mph) Grade (%) HR BP SpO2 SYMPTOMS METS Supine 66 152/86 96 Standing 73 146/82 1 3 1.7 10 122 162/86 93 4.5 2 6 2.5 12 126 7 1 min recovery 91 202/68 96 3 min recovery 78 178/90 96 6 min recovery 76 166/86 98 MPI Conclusion Myocardial perfusion is normal. There is no ischemia or evidence of prior infarction Ejection fraction is 79%. Wall motion is hyperdynamic Radiologist Interpretation Radiologist agrees with Wood Machinist Apprentice's Interpretation. Radiologist Interpretation by: Derick Nichole MD Interpretation Date/Time: 01/10/2024 19:13:43
== END ==
PROVIDERS: PCP Family Medicine; Visit Provider Family Medicine
DX: I20.9 Angina pectoris, unspecified (principal)
CPT/HCPCS: 78452; 93016; 93018; 93017

== ENCOUNTER 2024-09-25 09:11 | Outpatient (REF) | payer MEDICARE, SELFPAY ==
[2024-09-25 15:43] LABS: HCT 39.4 % (36.0-46.0); MCH 30.5 pg (27.0-33.0); MCV 93 fL (80-95); MPV 12.4 fL (8.0-11.0); Platelet Count 183 10^3/uL (130-400); RBC 4.26 10^6/uL (3.93-5.22); RDW 14.3 % (11.7-14.6); RDW-SD 48.3 fL
[2024-09-25 16:06] LABS: ALT 44 U/L (14-59); AST 23 U/L (15-37); Albumin 4.1 g/dL (3.4-5.0); Alkaline Phosphatase 84 U/L (46-116); Anion Gap 6.2 mmol/L (3-11); BUN 19 mg/dL (7-18); Bilirubin, Total 0.99 mg/dL (0.2-1.0); CO2 29.8 mmol/L (21.0-32.0); CREATININE 0.9 mg/dL (0.55-1.02); Calcium 9.4 mg/dL (8.5-10.1); Calculated LDL 111 mg/dL (<100); Chloride 105 mmol/L (98-107); Cholesterol 178 mg/dL (<200); Glucose 108 mg/dL (74-106); HDL Cholesterol 42 mg/dL (40-60); Potassium 4.2 mmol/L (3.5-5.1); Sodium 141 mmol/L (136-145); Total Protein 7.3 g/dL (6.4-8.2); Triglyceride 126 mg/dL (<150)
== END 2024-09-25 09:12 | disposition home or self-care (01) ==
LOC: NCHCN 09:11
PROVIDERS: PCP Family Medicine; Visit Provider Family Medicine
DX: I10 Essential (primary) hypertension (principal)
CPT/HCPCS: 80053; 80061; 85027

== ENCOUNTER → 2024-11-08 13:59 | Outpatient (BNVA) | payer MEDICARE, SELFPAY | PROVIDERS: PCP Family Medicine; Referring Provider Family Medicine; Visit Provider Nurse Practitioner Adult Health | DX: M79.601 Pain in right arm (principal); G56.03 Carpal tunnel syndrome, bilateral upper limbs | CPT/HCPCS: 99215 ==